=== PATIENT | female | born 1965 | race Caucasian/White ===

== ENCOUNTER → 2018-06-05 06:03 | Day surgery (SDC) | payer BC, MEDICARE ==
[~2018-06-05 06:03] MED LIST: Buffered Lidocaine 0.9% SYRIN* 5 ML/SYR SYRINGE INTRADERM ONE; Bupivacaine 0.25% SDV PF* 10 ML VIAL INJ ONE; Lidocaine 1% MPF wEPI 200,000* 30 ML SDV ONE; Midazolam* 1 MG/ML 2 ML VIAL (2 MG) ONE; Midazolam* 1 MG/ML 5 ML VIAL (5 MG) ONE; Morphine VIAL* 10 MG/ML 1 ML VIAL ONE; Naloxone* 0.4 MG/ML 1 ML VIAL IV PRN; ceFAZolin 2 GM PREMIX in ORs 2 GM/50 ML BAG IVPB ONE; fentaNYL* 50 MCG/ML 2 ML VIAL (100 MCG VIAL) ONE
[2018-06-05 09:31] VITALS: BP 107/69
--- NOTE | 2018-06-06 04:31 | OP ---
DATE OF OPERATION: 06/05/18 - [facility] DATE OF : 61 SURGEON: Kd Jean MD FEDERAL JUDGE: GARLAND Morales. An volunteer services assistant was needed to aid in positioning of the hand and retraction. ANESTHESIOLOGIST: Dr. Keating. ANESTHESIA: Local MAC. 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 OPERATIVE PROCEDURE: Arthrodesis of right index finger proximal interphalangeal joint. INDICATIONS: Jose has had pain in that joint for some time, it is very arthritic. Has had steroid injections without improvement. We had talked about risks and benefits, she wanted to proceed with surgery. ESTIMATED BLOOD LOSS: 2 mL. COMPLICATIONS: None. FINDINGS: See above and below. DESCRIPTION OF PROCEDURE: Jose was seen in the preoperative holding area. The correct, site, side and procedure were identified. We came back to the operating room. The arm was prepped and draped in the usual fashion. A time- out was performed. The arm was exsanguinated with the Esmarch and the tourniquet was inflated to 250 mmHg. The finger had already been anesthetized with 0.25% plain Marcaine. I made a curvilinear incision over the dorsum of the index finger centered over the PIP joint and curving along the ulnar aspect. Full-thickness flaps were raised off the paratenon. A longitudinal split was made in the extensor tendon and the insertion of the central slip was released. The radial collateral and ulnar collateral ligaments were released. The joint was opened. A rongeur was used to remove the subchondral bone back to healthy bleeding cancellous bone. I did use the 2.4 mm sydnie to assist with this on the middle phalanx base. Once I had good cancellous bone and nicely opposable bony surfaces, I went ahead and opposed them and crossed the fusion site with one 0.008 mm K-wire from the [employer]ynthe[employer] variable angle handset. I then took a 1.5 mm straight plate and clipped off the last 2 holes. I bent it and set it in about 20 to 30 degrees of flexion. The finger was positioned in such a way so that the thumb rested nicely over the middle phalanx with jaevd pinch. The plate was held in place and secured with multiple 1.5 mm cortical screws proximally and distally. Once everything was looking good, I went ahead and irrigated things out. The fusion surface was nicely compressed. There is really no need for any bone graft. I had harvested some of the autogenous bone graft as I did debridement, but we did not really need any of this since it was already so nicely compressed, so I closed the soft tissue layer over the plate with 4-0 Prolene suture. The split in the extensor tendon was then closed with 4-0 Prolene suture. The wound was irrigated out. Skin flap was closed with 4-0 nylon suture. Soft dressings were applied and AlumaFoam splint was applied. The tourniquet was deflated and she was taken to the recovery room in stable condition. [id number]/[facility] #: [id number] PARRIS
== END | disposition home or self-care (01) ==
LOC: OR 06:03
PROVIDERS: ATTEND Orthopaedic Surgery Hand Surgery
DX: M19.041 Primary osteoarthritis, right hand (principal); E78.5 Hyperlipidemia, unspecified; K21.9 Gastro-esophageal reflux disease without esophagitis; F41.8 Other specified anxiety disorders; G47.33 Obstructive sleep apnea (adult) (pediatric); E03.9 Hypothyroidism, unspecified
CPT/HCPCS: 76001; C1713; C1776; J0690; J2001; J2250; J2270; J3010; J3490